=== PATIENT | male | born 1950 | race Caucasian/White ===

== ENCOUNTER 2020-02-28 09:02 | Outpatient (CLI) | payer MEDICARE, SELFPAY ==
--- NOTE | 2020-02-28 09:11 | MR_ITS ---
WS: [id number] INDICATION: Malignant neoplasm oropharynx TECHNIQUE: MRI of the neck without and with gadolinium enhancement. FINDINGS: Gadolinium not administered. T2 hyperintense neoplasm involving the left posterior oropharynx extendi ng across midline. Involvement of the uvula, posterior soft palate, and left tonsillar fossa. Mass ef fect on the posterior oropharynx. T2 hyperintense neoplasm involves the tongue base with signal abnor mality extending across midline. Normal vallecula and piriform sinuses. Normal epiglottis. Normal glottis and subglottic airway. No visualized cervical lymphadenopathy. Prominent right posterior triangle lymph node measuring 9 mm. Parotid glands and submandibular glands appear normal. Right thyroid nodule measuring 2.3 CM. Normal vascular flow voids at the skull base. Mild mucosal thickening paranasal sinuses. Mastoid air cells are well aerated. Mild spondylitic changes cervical spine with mild central canal stenosis C5-C 6 and C6-C7. 2.5 cm retention cyst or polyp left maxillary sinus. Mild mucosal thickening right maxil briana sinus. Mastoid air cells well aerated. MR/[place] [id number] IMPRESSION: 1. Lobulated T2 hyperintense neoplasm involving the posterior oropharynx exten ding across midline. This involves the tongue base extending across midline. 2. Involvement of the uvula and left posterior soft palate. This extends to in volve the left palatine tonsil. 3. Glottis and subglottic airway are normal. 4. Prominent right posterior triangle lymph node measuring 9 mm. No other visu alized cervical lymphadenopathy. 5. Right thyroid nodule measuring 2.3 CM. This can be further evaluated with u ltrasound.
== END 2020-02-28 09:03 | disposition home or self-care (01) ==
LOC: RADSHAW 09:09
PROVIDERS: PCP Family Medicine; Visit Provider Specialist
DX: C10.9 Malignant neoplasm of oropharynx, unspecified (principal); R59.0 Localized enlarged lymph nodes; E04.1 Nontoxic single thyroid nodule
CPT/HCPCS: 70336

== ENCOUNTER 2020-04-14 13:20 | Outpatient (CLI) | payer MEDICARE, SELFPAY ==
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
== END 2020-04-14 13:21 | disposition home or self-care (01) ==
PROVIDERS: Absent Provider Radiology Radiation Oncology; PCP Family Medicine; Visit Provider Internal Medicine Medical Oncology
DX: C10.8 Malignant neoplasm of overlapping sites of oropharynx (principal)
CPT/HCPCS: 99205; 99214